=== PATIENT | female | born 1935 | race Caucasian/White ===

== ENCOUNTER 2022-05-15 14:55 | Outpatient (CLI) | payer OTHER, SELFPAY ==
[2022-05-16 00:53] LABS: Alanine Aminotransferase* 16 U/L (4-35); Aspartate Amino Transferase* 19 U/L (12-35); Cholesterol* 175 mg/dL (90-199); HDL Cholesterol* 60 mg/dL (>=50); LDL Cholesterol Calculated 68 mg/dL (<100); Triglycerides* 234 mg/dL (40-149)
== END 2022-05-15 14:56 | disposition home or self-care (01) ==
PROVIDERS: PCP Physician Assistant Medical; Visit Provider Physician Assistant Medical
DX: E78.5 Hyperlipidemia, unspecified (principal); E03.9 Hypothyroidism, unspecified; I10 Essential (primary) hypertension; D63.8 Anemia in other chronic diseases classified elsewhere; N18.6 End stage renal disease
CPT/HCPCS: 80061; 84443; 84450; 84460

== ENCOUNTER 2023-01-04 13:26 | Outpatient (CLI) | payer OTHER, SELFPAY | END 2023-01-04 13:27 | disposition home or self-care (01) | LOC: NFLDREF 01-05 09:08 | PROVIDERS: PCP Physician Assistant Medical; Referring Provider Physician Assistant Medical; Visit Provider Physician Assistant Medical | DX: Z79.01 Long term (current) use of anticoagulants (principal) | CPT/HCPCS: 85610 ==

== ENCOUNTER 2023-01-05 13:22 | Outpatient (CLI) | payer OTHER, SELFPAY | END 2023-01-05 13:23 | disposition home or self-care (01) | LOC: NFLDREF 01-07 13:41 | PROVIDERS: PCP Physician Assistant Medical; Referring Provider Physician Assistant Medical; Visit Provider Physician Assistant Medical | DX: Z79.01 Long term (current) use of anticoagulants (principal) | CPT/HCPCS: 85610 ==

== ENCOUNTER 2023-01-06 13:15 | Outpatient (CLI) | payer OTHER, SELFPAY | END 2023-01-06 13:16 | disposition home or self-care (01) | LOC: NFLDREF 01-07 10:41 | PROVIDERS: PCP Physician Assistant Medical; Referring Provider Physician Assistant Medical; Visit Provider Physician Assistant Medical | DX: Z79.01 Long term (current) use of anticoagulants (principal) | CPT/HCPCS: 85610 ==

== ENCOUNTER 2023-01-11 15:10 | Outpatient (CLI) | payer OTHER, SELFPAY | END 2023-01-11 15:11 | disposition home or self-care (01) | LOC: NFLDREF 01-13 04:10 | PROVIDERS: PCP Physician Assistant Medical; Referring Provider Physician Assistant Medical; Visit Provider Physician Assistant Medical | DX: T82.868A Thrombosis due to vascular prosthetic devices, implants and grafts, initial encounter (principal); Z79.01 Long term (current) use of anticoagulants | CPT/HCPCS: 85610 ==

== ENCOUNTER 2023-01-14 10:57 | Outpatient (CLI) | payer OTHER, SELFPAY | END 2023-01-14 10:58 | disposition home or self-care (01) | LOC: NFLDREF 23:39 | PROVIDERS: PCP Physician Assistant Medical; Referring Provider Physician Assistant Medical; Visit Provider Physician Assistant Medical | DX: Z01.818 Encounter for other preprocedural examination (principal); E11.9 Type 2 diabetes mellitus without complications; Z79.4 Long term (current) use of insulin | CPT/HCPCS: 85610 ==

== ENCOUNTER 2023-08-16 13:20 | Outpatient (CLI) | payer OTHER, SELFPAY | END 2023-08-16 13:21 | disposition home or self-care (01) | PROVIDERS: PCP Physician Assistant Medical; Visit Provider Physician Assistant Medical | DX: E78.2 Mixed hyperlipidemia (principal); I10 Essential (primary) hypertension; E03.9 Hypothyroidism, unspecified | CPT/HCPCS: 80053; 80061; 84443 ==

== ENCOUNTER 2024-10-16 15:31 | Outpatient (CLI) | payer OTHER, SELFPAY | END 2024-10-16 15:32 | disposition home or self-care (01) | PROVIDERS: PCP Physician Assistant Medical; Visit Provider Physician Assistant Medical | DX: E78.2 Mixed hyperlipidemia (principal); E03.9 Hypothyroidism, unspecified; I10 Essential (primary) hypertension; N18.6 End stage renal disease; E11.9 Type 2 diabetes mellitus without complications | CPT/HCPCS: 80061; 84443; 84450; 84460 ==